=== PATIENT | male | born 1935 | race Two or more races ===

== ENCOUNTER 2018-03-05 20:51 | Emergency (ER) | payer OTHER ==
[~2018-03-05] VITALS: Ht 175.3 cm; Wt 84.4 kg
== END 2018-03-05 22:45 | disposition home or self-care (01) ==
LOC: ER 20:51
DX: T83.091A Other mechanical complication of indwelling urethral catheter, initial encounter (principal); C61 Malignant neoplasm of prostate; R33.8 Other retention of urine; Y73.0 Diagnostic and monitoring gastroenterology and urology devices associated with adverse incidents; Y92.89 Other specified places as the place of occurrence of the external cause

== ENCOUNTER 2018-03-17 04:03 | Inpatient (IN) | payer OTHER ==
[~2018-03-17] VITALS: Ht 175.3 cm; Wt 84.8 kg
[2018-03-17] MEDS ORDERED: HYDRALAZINE HCL50 MG PO (04:28)
[2018-03-17] MEDS ORDERED: NORVASC10 MG PO (04:28)
[2018-03-17] MEDS ORDERED: NEURONTIN300 MG PO (04:29)
[2018-03-17] MEDS ORDERED: TAMS0.4C PO (04:29)
[2018-03-18] MEDS ORDERED: CIPRO500 MG PO (09:46)
== END 2018-03-18 11:44 | disposition home or self-care (01) | DRG 699 ==
LOC: ER 04:03 → SEC-K 08:53 → EDBD 08:53 → MEDI 11:42 → EDBD 03-18 11:44
PROC: BW21ZZZ Computerized Tomography (CT Scan) of Abdomen and Pelvis (ICD-10-PCS; principal; 2018-03-17)
DX: T83.83XA Hemorrhage due to genitourinary prosthetic devices, implants and grafts, initial encounter (principal); C79.51 Secondary malignant neoplasm of bone; N13.8 Other obstructive and reflux uropathy; N17.8 Other acute kidney failure; R31.0 Gross hematuria; D50.0 Iron deficiency anemia secondary to blood loss (chronic); N40.1 Benign prostatic hyperplasia with lower urinary tract symptoms; I10 Essential (primary) hypertension; C61 Malignant neoplasm of prostate; N31.8 Other neuromuscular dysfunction of bladder

== ENCOUNTER 2018-03-21 13:33 | Emergency (ER) | payer OTHER ==
[~2018-03-21] VITALS: Ht 177.8 cm; Wt 84.8 kg
[~2018-03-21 13:33] MED LIST: CIPRO500 MG PO; HYDRALAZINE HCL50 MG PO; NEURONTIN300 MG PO; NORVASC10 MG PO; TAMS0.4C PO
== END 2018-03-21 20:48 | disposition home or self-care (01) ==
LOC: ER 13:33
DX: T83.091A Other mechanical complication of indwelling urethral catheter, initial encounter (principal); T83.511A Infection and inflammatory reaction due to indwelling urethral catheter, initial encounter; N39.0 Urinary tract infection, site not specified; B96.20 Unspecified Escherichia coli [E. coli] as the cause of diseases classified elsewhere; B96.4 Proteus (mirabilis) (morganii) as the cause of diseases classified elsewhere

== ENCOUNTER 2018-03-27 23:43 | Emergency (ER) | payer OTHER ==
[~2018-03-27] VITALS: Ht 175.3 cm; Wt 84.8 kg
== END 2018-03-28 01:33 | disposition home or self-care (01) ==
LOC: ER 23:43
DX: T83.091A Other mechanical complication of indwelling urethral catheter, initial encounter (principal); Y73.1 Therapeutic (nonsurgical) and rehabilitative gastroenterology and urology devices associated with adverse incidents; Y92.89 Other specified places as the place of occurrence of the external cause

== ENCOUNTER 2019-08-15 16:03 | Emergency (ER) | payer OTHER ==
[~2019-08-15] VITALS: Ht 175.3 cm; Wt 90.7 kg
== END 2019-08-16 00:45 | disposition home or self-care (01) ==
LOC: ER 16:03
DX: R31.0 Gross hematuria (principal); C61 Malignant neoplasm of prostate; C79.51 Secondary malignant neoplasm of bone

== ENCOUNTER 2019-09-06 13:07 | Emergency (ER) | payer OTHER ==
[~2019-09-06] VITALS: Ht 175.3 cm; Wt 88.5 kg
[2019-09-06] MEDS ORDERED: BACTRIM DS TAB1 EACH PO (18:20)
== END 2019-09-06 19:26 | disposition home or self-care (01) ==
LOC: ER 13:07
DX: N39.0 Urinary tract infection, site not specified (principal); R31.0 Gross hematuria

== ENCOUNTER 2019-09-12 10:51 | Emergency (ER) | payer OTHER ==
[~2019-09-12] VITALS: Ht 175.3 cm; Wt 86.6 kg
[~2019-09-12 10:51] MED LIST changes: +BACTRIM DS TAB1 EACH PO
[2019-09-12] MEDS ORDERED: LEVAQUIN500 MG (11:17)
== END 2019-09-13 13:46 | disposition home or self-care (01) ==
LOC: ER 10:51
DX: T83.091A Other mechanical complication of indwelling urethral catheter, initial encounter (principal); R33.8 Other retention of urine; K29.00 Acute gastritis without bleeding; R31.0 Gross hematuria; N17.8 Other acute kidney failure; N40.1 Benign prostatic hyperplasia with lower urinary tract symptoms; C61 Malignant neoplasm of prostate; D50.0 Iron deficiency anemia secondary to blood loss (chronic); N31.8 Other neuromuscular dysfunction of bladder; N13.1 Hydronephrosis with ureteral stricture, not elsewhere classified; I10 Essential (primary) hypertension; N39.0 Urinary tract infection, site not specified; R14.0 Abdominal distension (gaseous); C67.8 Malignant neoplasm of overlapping sites of bladder

== ENCOUNTER 2019-09-18 01:00 | Emergency (ER) | payer OTHER ==
[~2019-09-18] VITALS: Ht 175.3 cm; Wt 86.2 kg
[~2019-09-18 01:00] MED LIST changes: +LEVAQUIN500 MG
== END 2019-09-18 03:53 | disposition home or self-care (01) ==
LOC: ER 01:00
DX: T83.098A Other mechanical complication of other urinary catheter, initial encounter (principal)

== ENCOUNTER 2019-10-08 05:13 | Inpatient (IN) | payer OTHER ==
[~2019-10-08] VITALS: Ht 175.3 cm; Wt 86.2 kg
[2019-10-15] MEDS ORDERED: APETIGEN P12.5 MG/15 PO (09:35)
[2019-10-15] MEDS ORDERED: INTEGRA PLUS C1 EACH PO (09:36)
== END 2019-10-26 11:44 | disposition expired | DRG 330 ==
LOC: ER 05:13 → SURH 11:08 → ICU 11:08 → ICU-2 11:08 → ICU 21:55 → SURH 10-20 20:39
PROVIDERS: Surgery; ADMIT Internal Medicine
PROC: BW21ZZZ Computerized Tomography (CT Scan) of Abdomen and Pelvis (ICD-10-PCS; 2019-10-08)
PROC: 30233N1 Transfusion of Nonautologous Red Blood Cells into Peripheral Vein, Percutaneous Approach (ICD-10-PCS; 2019-10-08)
PROC: 0T2BX0Z Change Drainage Device in Bladder, External Approach (ICD-10-PCS; 2019-10-08)
PROC: 3E0436Z Introduction of Nutritional Substance into Central Vein, Percutaneous Approach (ICD-10-PCS; 2019-10-09)
PROC: 0DU907Z Supplement Duodenum with Autologous Tissue Substitute, Open Approach (ICD-10-PCS; principal; 2019-10-11 13:00)
PROC: BW21Y0Z Computerized Tomography (CT Scan) of Abdomen and Pelvis using Other Contrast, Unenhanced and Enhanced (ICD-10-PCS; 2019-10-16)
PROC: 0TBB8ZZ Excision of Bladder, Via Natural or Artificial Opening Endoscopic (ICD-10-PCS; 2019-10-24)
DX: K26.2 Acute duodenal ulcer with both hemorrhage and perforation (principal); N17.8 Other acute kidney failure; N13.8 Other obstructive and reflux uropathy; D62 Acute posthemorrhagic anemia; E44.0 Moderate protein-calorie malnutrition; N39.0 Urinary tract infection, site not specified; K56.51 Intestinal adhesions [bands], with partial obstruction; J95.89 Other postprocedural complications and disorders of respiratory system, not elsewhere classified; J98.11 Atelectasis; N13.6 Pyonephrosis; C79.11 Secondary malignant neoplasm of bladder; B37.89 Other sites of candidiasis; M62.81 Muscle weakness (generalized); I12.9 Hypertensive chronic kidney disease with stage 1 through stage 4 chronic kidney disease, or unspecified chronic kidney disease; N18.2 Chronic kidney disease, stage 2 (mild); B95.2 Enterococcus as the cause of diseases classified elsewhere; C61 Malignant neoplasm of prostate; R97.21 Rising PSA following treatment for malignant neoplasm of prostate; N40.1 Benign prostatic hyperplasia with lower urinary tract symptoms; R31.0 Gross hematuria; K57.30 Diverticulosis of large intestine without perforation or abscess without bleeding